=== PATIENT | female | born 1980 | race Caucasian/White ===

== ENCOUNTER 2017-03-19 06:56 | Outpatient (CLI) | payer OTHER ==
[~2017-03-19] VITALS: Ht 170.2 cm; Wt 86.6 kg
[~2017-03-19 06:56] MED LIST: ACYC-57 PO; CHOL100040; FIBER GUMMY PO; LABE1TAB28 PO; MTR600X PO; PRENTAB26 PO
[2017-03-19] MEDS ORDERED: LACTATED RINGER'S 1000ML 500 ML IV ONE (07:24)
[2017-03-19] MEDS ORDERED: LACTATED RINGER'S 1000ML 1,000 ML IV SCH (07:24)
[2017-03-19] MEDS ORDERED: ONDANSETRON INJ 2 MG/ML 2 ML VIAL IV PRN (07:30)
[2017-03-19] MEDS ORDERED: CEFTRIAXONE SOD INJ 1 GM in DEXTROSE 5% ADD-VANTAGE 50ML 50 ML IV SCH (08:00)
[2017-03-19 08:39] LABS: BLOOD UREA NITROGEN 10 mg/dl (7-18); CALCIUM 8.4 mg/dl (8.5-10.1); CARBON DIOXIDE 22 mmol/L (21-32); CREATININE 1.03 mg/dl (0.60-1.20); GLUCOSE 93 mg/dl (70-99); SODIUM 138 mmol/L (136-145)
[2017-03-19 09:08] VITALS: Ht 170.2 cm; Wt 86.6 kg
[2017-03-19] MEDS ORDERED: MoRPHine SULFATE 10 MG/ML CARP/VIAL IV ONE (09:30)
[2017-03-19 10:03] LABS: BASO % 0.1 %; BASO ABS # 0.02 K/uL (0-0.2); EOS % 0.1 %; EOS ABS # 0.02 K/uL (0-0.5); HEMATOCRIT 33.1 % (37-47); HEMOGLOBIN 11.8 g/dL (12.0-16.0); IG# 0.18 K/uL (0.00-0.02); LYMPH % 6.7 %; LYMPH ABS # 0.95 K/uL (1.2-3.4); MEAN CELL VOLUME 90.9 fL (80-100); MEAN CORPUSCULAR HEMOGLOBIN 32.4 pg (25-34); MEAN CORPUSCULAR HGB CONC 35.6 g/dl (32-36); MONO % 2.5 %; MONO ABS # 0.36 K/uL (0.11-0.59); NEUT % 89.3 %; NEUT ABS # 12.74 K/uL (1.4-6.5); PLATELET COUNT 189 K/uL (130-400); RED CELL DISTRIBUTION WIDTH CV 13.3 % (11.5-14.5); RED CELL DISTRIBUTION WIDTH SD 44.1 fL (36.4-46.3); WHITE BLOOD COUNT 14.27 K/uL (4.8-10.8)
--- NOTE | 2017-03-19 11:56 | DIAGNOSTIC IMAGING REPORT ---
(RENAL)RETROPERITON COMP CLINICAL HISTORY: 36 years-old Female presenting with flank pain, 29 weeks . TECHNIQUE: Real-time grayscale and limited color Doppler ultrasound imaging of the kidneys and bladder was performed. COMPARISON: None. FINDINGS: Right kidney: Normal echogenicity. Right kidney measures 11.4 cm. No hydronephrosis. No convincing evidence of calculus or mass. Normal perfusion. Left kidney: Normal echogenicity. Left kidney measures 11.1 cm. Mild pelviectasis. No convincing evidence of calculus or mass. Normal perfusion. Bladder: No bladder wall thickening. Bilateral ureteral jets not visualized. Other: Spleen top normal in size, measuring 13.8 cm in greatest sagittal dimension. IMPRESSION: 1. Mild left pelviectasis, likely mild hydronephrosis of . 2. Mild splenomegaly. Electronically signed by: Jamaal Ybarra M.D. 03/19/2017 11:55 AM Dictated Date/Time: 03/19/2017 8:34 AM
[2017-03-19] MEDS ORDERED: OXYCODONE/ACETAMINOPHEN 5-325 TAB PO PRN (12:00)
[2017-03-19] MEDS ORDERED: ACETAMINOPHEN 325 MG TAB PO PRN (12:00)
[2017-03-19] MEDS ORDERED: OXYC-57 PO (12:00)
--- NOTE | 2017-03-19 12:03 | Discharge Instructions ---
Discharge Instructions Date of Service Mar 19, 2017. Admission Reason for Admission: Back Pain Discharge Discharge Diagnosis / Problem: at 28.6 weeks, possible renal stone Discharge Goals Goal(s): Continuing OB care Activity Recommendations Activity Limitations: resume your previous activity . Instructions / Follow-Up Instructions / Follow-Up ACTIVITY RECOMMENDATIONS: See Labor Sheet. SPECIAL CARE INSTRUCTIONS: Call Doctor if: * Regular contractions every 5 minutes or greater. * Bleeding * Water breaks or is leaking * Decreased movement * Fever >100.4 degrees F * Pain not relieved by routine measures or pain medication ordered. FOLLOW UP VISIT: [facility]: within 1 week Current Hospital Diet Patient's current hospital diet: Regular OB Diet Discharge Diet Recommended Diet: Regular OB Diet Pending Studies Studies pending at discharge: no Medical Emergencies . Who to Call and When: Medical Emergencies: If at any time you feel your situation is an emergency, please call 911 immediately. . Non-Emergent Contact Non-Emergency issues call your: Primary Care Provider, Puppet Developer Call Non-Emergent contact if: you have a fever, your pain is not controlled . . "Provider Documentation" section prepared by Romulo Milligan. . VTE Core Measure Inpt VTE Proph given/why not?: Treatment not indicated
[2017-03-20] MEDS ORDERED: NICOTINE 14 MG/24 HR TDSY TD SCH (08:00)
== END 2017-03-19 13:10 | disposition home or self-care (01) ==
LOC: C.LD 06:56 → C.OPB 06:56
PROVIDERS: ATTEND Obstetrics & Gynecology
DX: O99.89 Other specified diseases and conditions complicating pregnancy, childbirth and the puerperium (principal); M54.9 Dorsalgia, unspecified; Z3A.28 28 weeks gestation of pregnancy

== ENCOUNTER 2017-04-29 12:34 | Outpatient (CLI) | payer OTHER ==
[~2017-04-29] VITALS: Ht 170.2 cm; Wt 88.2 kg
[~2017-04-29 12:34] MED LIST changes: -MTR600X PO; +OXYC-57 PO
[2017-04-29 13:02] VITALS: Ht 170.2 cm; Wt 88.2 kg
[2017-04-29 13:16] LABS: BASO % 0.1 %; BASO ABS # 0.01 K/uL (0-0.2); EOS % 0.4 %; EOS ABS # 0.04 K/uL (0-0.5); HEMATOCRIT 31.9 % (37-47); HEMOGLOBIN 11.1 g/dL (12.0-16.0); IG# 0.09 K/uL (0.00-0.02); LYMPH % 14.8 %; LYMPH ABS # 1.49 K/uL (1.2-3.4); MEAN CELL VOLUME 91.4 fL (80-100); MEAN CORPUSCULAR HEMOGLOBIN 31.8 pg (25-34); MEAN CORPUSCULAR HGB CONC 34.8 g/dl (32-36); MEAN PLATELET VOLUME 10.6 fL (7.4-10.4); MONO % 4.1 %; MONO ABS # 0.41 K/uL (0.11-0.59); NEUT % 79.7 %; NEUT ABS # 8.03 K/uL (1.4-6.5); PLATELET COUNT 178 K/uL (130-400); RED CELL DISTRIBUTION WIDTH CV 14.3 % (11.5-14.5); RED CELL DISTRIBUTION WIDTH SD 47.3 fL (36.4-46.3); WHITE BLOOD COUNT 10.07 K/uL (4.8-10.8)
[2017-04-29 13:37] LABS: ALBUMIN 2.7 gm/dl (3.4-5.0); CALCIUM 8.4 mg/dl (8.5-10.1); CREATININE 0.63 mg/dl (0.60-1.20); POTASSIUM 3.7 mmol/L (3.5-5.1)
[2017-04-29 13:39] LABS: TOTAL PROTEIN 6.6 gm/dl (6.4-8.2)
== END 2017-04-29 16:02 | disposition home or self-care (01) ==
LOC: C.OPB 12:34 → C.LD 12:36 → C.OPB 16:02
PROVIDERS: ATTEND Obstetrics & Gynecology
DX: O99.89 Other specified diseases and conditions complicating pregnancy, childbirth and the puerperium (principal); R03.0 Elevated blood-pressure reading, without diagnosis of hypertension; O36.8130 Decreased fetal movements, third trimester, not applicable or unspecified; Z3A.34 34 weeks gestation of pregnancy

== ENCOUNTER 2017-06-05 03:10 | Inpatient (IN) | payer OTHER ==
[~2017-06-05] VITALS: Ht 170.2 cm; Wt 93.0 kg
[2017-06-05] MEDS ORDERED: LACTATED RINGER'S 1000ML 1,000 ML IV PRN (08:23)
[2017-06-05 08:45] LABS: HEMATOCRIT 34.1 % (37-47); HEMOGLOBIN 11.8 g/dL (12.0-16.0); MEAN CELL VOLUME 91.9 fL (80-100); MEAN CORPUSCULAR HEMOGLOBIN 31.8 pg (25-34); MEAN CORPUSCULAR HGB CONC 34.6 g/dl (32-36); MEAN PLATELET VOLUME 10.4 fL (7.4-10.4); PLATELET COUNT 166 K/uL (130-400); RED CELL DISTRIBUTION WIDTH CV 14.6 % (11.5-14.5); WHITE BLOOD COUNT 9.85 K/uL (4.8-10.8)
[2017-06-05] MEDS ORDERED: LACTATED RINGER'S 1000ML 500 ML IV PRN ×2 (09:01→12:46)
--- NOTE | 2017-06-05 09:04 | Progress Note ---
Progress Note Date of Service Jun 05, 2017. Progress Note Admit Note 36 F P1001 at 40 weeks admitted for induction of labor. GBS is negative. Cervix 2-3/70/-2/vertex/soft/midline/intact. EFW 7.5-8 lbs. FHT Cat 1. Will start oxytocin to induce labor.
[2017-06-05 09:14] VITALS: Ht 170.2 cm; Wt 93.0 kg
[2017-06-05] MEDS ORDERED: VALA500T60 PO (09:14)
[2017-06-05] MEDS ORDERED: OXYTOCIN 30 UNITS/500ML NSS IV PRN ×2 (09:15→18:15)
[2017-06-05] MEDS: LACTATED RINGER'S 1000ML 1,000 ML IV SCH ×3 (09:43→18:34)
[2017-06-05] MEDS ORDERED: BUPIVACAINE 0.25% 30 ML VIAL ONE (12:04)
[2017-06-05] MEDS ORDERED: EpHEDrine SULFATE INJ 50 MG/ML AMP ONE (12:05)
[2017-06-05] MEDS ORDERED: FENTANYL 2MCG/ML ROPIV 1.25MG/ML 100ML BAG EPI ONE (12:06)
[2017-06-05] MEDS ORDERED: FENTANYL CITRATE INJ 50 MCG/1 ML 2 ML VIAL ONE (12:06)
[2017-06-05] MEDS ORDERED: NALOXONE HCL INJ 1 MG in SODIUM CHLORIDE 0.9% 1000ML 1,000 ML IV PRN (12:46)
[2017-06-05] MEDS ORDERED: NALOXONE HCL 0.4 MG/1 ML VIAL/CARP IV PRN (13:00)
[2017-06-05] MEDS ORDERED: DiphenhydrAMINE HCL 50 MG/ML VIAL IV PRN (13:00)
[2017-06-05] MEDS ORDERED: NALBUPHINE HCL INJ 10 MG/ML AMP IV PRN (13:00)
[2017-06-05] MEDS ORDERED: ONDANSETRON INJ 2 MG/ML 2 ML VIAL IV PRN (13:00)
[2017-06-05] MEDS ORDERED: EpHEDrine SULFATE INJ 50 MG/ML AMP IV PRN (13:00)
[2017-06-05] MEDS ORDERED: FENTANYL 2MCG/ML ROPIV 1.25MG/ML 100ML BAG EPI PRN (13:00)
[2017-06-05] MEDS ORDERED: LACTATED RINGER'S 1000ML 1,000 ML IV SCH (18:09)
[2017-06-05] MEDS ORDERED: BENZOCAINE 20% AER SPR 82.5 GM CAN EXT PRN (18:15)
[2017-06-05] MEDS ORDERED: OXYCODONE/ACETAMINOPHEN 5-325 TAB PO PRN (18:15)
[2017-06-05] MEDS ORDERED: HYDROCORTISONE ACETATE 25 MG SUPP PR PRN (18:15)
[2017-06-05] MEDS ORDERED: LANOLIN OINT EXT PRN (18:15)
[2017-06-05] MEDS ORDERED: ACETAMINOPHEN 325 MG TAB PO PRN (18:15)
--- NOTE | 2017-06-05 18:16 | Vaginal Delivery Summary ---
Vaginal Delivery Summary Delivery Note live female over intact perineum JUAN with nuchal cord x1 reduced at delivery. Delayed cord clamping followed by spontaneous delivery of intact placenta. Apgars 8/9 weight pending. Second degree tear repaired with 1 % plain lidocaine. EBL 250 ml. Final sponge, needle and instrument count are correct. Mom and baby stable.
--- NOTE | 2017-06-05 19:19 | Anesthesia Procedure Note ---
Anesthesia Epidural Removal Nt Date & Time Jun 05, 2017 at 19:19 Vital Signs Pain Intensity: 0.0 Notes Mental Status: alert / awake / arousable, participated in evaluation Nausea / Vomiting: adequately controlled Pain: adequately controlled Airway Patency, RR, SpO2: stable & adequate BP & HR: stable & adequate Hydration State: stable & adequate Neuraxial Anesthesia: was administered Anesthetic Complications: no major complications apparent, pt satisfied with anesthetic care Epidural: removed without complications, with tip intact
[2017-06-05 21:05] VITALS: BP 132/87; PULSE 81; TEMP 37.3
[2017-06-05] MEDS: IBUPROFEN 600 MG TAB PO PRN (23:03)
[2017-06-06] VITALS (8 sets, daily range): BP systolic 131–152; BP diastolic 78–104; PULSE 69–102; TEMP 36.6–37.5; O2SAT 97–98
[2017-06-06] MEDS: IBUPROFEN 600 MG TAB PO PRN ×4 (05:30→17:28)
[2017-06-06 07:33] LABS: HEMATOCRIT 28.5 % (37-47); HEMOGLOBIN 9.8 g/dL (12.0-16.0)
[2017-06-06] MEDS: PRENATAL VITAMIN TAB PO SCH (08:10)
[2017-06-06] MEDS: FERROUS SULFATE 325 MG TAB PO SCH (08:10)
[2017-06-06] MEDS: DOCUSATE SODIUM 100 MG CAP PO SCH (08:10)
[2017-06-06] MEDS ORDERED: DIPHTHERIA/TETANUS/PERTUSSIS 0.5 ML SYR/VIAL IM. ONE (09:00)
[2017-06-06] MEDS ORDERED: MEASLES, MUMPS & RUBELLA VIRUS VIAL SQ. ONE (09:00)
--- NOTE | 2017-06-06 09:07 | OB/GYN Progress Note ---
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 Patient is seen and examined. She feels well, no complaints. Ambulating without dizziness Voiding without difficulty Tolerating regular diet with out N&V Bleeding is minimal No fever/ chills/ CP/ SOB/ N&V/ Leg pain Breast feeding without problems Date Time Temp Pulse Resp B/P (MAP) Pulse Ox O2 Delivery O2 Flow Rate FiO2 06/06/17 04:35 37.1 69 18 145/93 (110) Room Air 06/06/17 00:35 136/90 (105) 06/06/17 00:05 Room Air 06/06/17 00:05 37.5 75 18 152/104 (120) Room Air 06/05/17 21:05 Room Air 06/05/17 21:05 37.3 81 18 132/87 (102) Room Air BP: 152/104 PE: General: Alert, orientedx3, NAD Abd: soft, NT, fundus firm, below Umbilicus Perineum intact, Lochia rubra minimal Ext; NT, no edema AP: 36 yo s/p , ppd# 1 VSS Afebrile doing well BP elevated, none in severe range, asymptomatic h/o preeclampsia with 1st , not with this Plan blood work and start Labetalol 50 mg bid She agrees Continue to monitor closely All questions were answered D/C home tomorrow
[2017-06-06 09:19] LABS: BASO % 0.2 %; BASO ABS # 0.03 K/uL (0-0.2); EOS % 0.3 %; EOS ABS # 0.04 K/uL (0-0.5); HEMATOCRIT 30.8 % (37-47); HEMOGLOBIN 10.7 g/dL (12.0-16.0); IG# 0.08 K/uL (0.00-0.02); LYMPH ABS # 1.46 K/uL (1.2-3.4); MEAN CELL VOLUME 91.9 fL (80-100); MEAN CORPUSCULAR HEMOGLOBIN 31.9 pg (25-34); MEAN CORPUSCULAR HGB CONC 34.7 g/dl (32-36); MEAN PLATELET VOLUME 10.6 fL (7.4-10.4); MONO % 3.9 %; MONO ABS # 0.57 K/uL (0.11-0.59); NEUT % 85.1 %; NEUT ABS # 12.47 K/uL (1.4-6.5); PLATELET COUNT 190 K/uL (130-400); RED CELL DISTRIBUTION WIDTH CV 14.8 % (11.5-14.5); RED CELL DISTRIBUTION WIDTH SD 49.8 fL (36.4-46.3); WHITE BLOOD COUNT 14.65 K/uL (4.8-10.8)
[2017-06-06] MEDS: LABETALOL HCL 100 MG TAB PO SCH ×2 (09:30→19:37)
[2017-06-06 10:05] LABS: ALBUMIN 2.4 gm/dl (3.4-5.0); CALCIUM 8.6 mg/dl (8.5-10.1); CREATININE 0.94 mg/dl (0.60-1.20); POTASSIUM 3.9 mmol/L (3.5-5.1)
[2017-06-06 10:08] LABS: TOTAL PROTEIN 6.2 gm/dl (6.4-8.2)
[2017-06-06] MEDS ORDERED: BISACODYL 5 MG TABEC PO SCH (20:00)
[2017-06-07 00:10] VITALS: BP 124/83; PULSE 83; TEMP 37.2
[2017-06-07] MEDS: IBUPROFEN 600 MG TAB PO PRN (06:46)
[2017-06-07] MEDS ORDERED: BISACODYL 10 MG SUPP PR PRN (07:00)
[2017-06-07] MEDS ORDERED: LBT100 PO (07:16)
--- NOTE | 2017-06-07 07:17 | Discharge Instructions ---
Discharge Instructions Date of Service Jun 07, 2017. Admission Reason for Admission: Induction Discharge Discharge Diagnosis / Problem: Vaginal Delivery Discharge Goals Goal(s): Routine recovery after delivery Medications Continue Dispensed Medications: supercream, dermaplast, tucks, lansinoh Activity Recommendations Activity Limitations: per Instructions/Follow-up section . Instructions / Follow-Up Instructions / Follow-Up ACTIVITY RECOMMENDATIONS: * Gradual return to full activity over the next 2-3 weeks. * No lifting - nothing heavier than baby over the next 2-3 weeks. * Do not engage in vigorous exercise, sexual activity or sports until cleared by your physician. * Do not drive or operate any motorized equipment until cleared by your physician. * You may shower/bathe daily. BREAST CARE: If you are not breast feeding: * Wear a supportive bra 24 hours a day for one to two weeks. * Avoid stimulating your breasts and nipples as much as possible during the first few weeks after delivery. * When taking a shower, have the warm water hit your back, not breasts. * When your breasts feel full, apply ice packs. Usually three to four times a day helps ease the discomfort. * Take a mild pain medication (Tylenol/Motrin) when you are uncomfortable. If breast feeding: * Use breast milk to lubricate nipples. Lansinoh cream may be used for sore nipples. You do not need to remove cream prior to breast feeding. If using a different brand of cream, check the label for directions regarding removal of cream prior to nursing. * Wear a supportive bra. * If having problems with breasts or breast feeding, call a design consultant or your health care provider. EPISIOTOMY CARE: After delivery, if you have an episiotomy (stitches), the following steps will ease discomfort and aid healing. * For the first 24 hours after delivery, place ice packs next to your episiotomy to help reduce swelling. * After the first 24 hour-period, sitz baths, either portable or in the tub, are suggested. A shower with a shower arm sprayed over the episiotomy may be comforting. * Stacia care should be done after each voiding and bowel movement. Squirt warm water from a plastic bottle over the perineum (region of the body between the anus and urinary opening) and pat dry. * Use Dermoplast to ease discomfort. Shake container. Allen directly over the episiotomy. * Place a Tucks on a clean sanitary pad next to your episiotomy. OVER THE COUNTER MEDICATION: * For discomfort or pain, you may use Acetaminophen (Tylenol), Ibuprofen (Advil ), or Naproxen (Aleve) following the package directions. * For constipation you may use Colace following the package directions. SPECIAL CARE INSTRUCTIONS: When you are discharged from the hospital, it is important for you to follow the instructions listed below: * During the first week at home, you should be able to care for yourself and your baby. In addition, the usual light household activities are encouraged. * Limit your activities to the way you feel. Do not try to clean the house or move furniture. Be sensible. * If you actively engage in sports and have done so up until the time of your delivery, you may resume these activities as soon as you feel able. This may take up to one month or even longer. Use good judgment. * Continue to take your vitamins for at least six weeks after the of your baby. * Your diet need not be limited unless you were on a special diet before your delivery. Breast-feeding mothers need around 2500 calories per day and at least 64-80 ounces of fluid per day (8 to 10 glasses). * You should eat foods from the four major food groups. Crash diets or fad diets are to be avoided. Eating lean meats, fresh fruits and vegetables, low-fat dairy products, high fiber foods and a regular exercise program, will help you get back to your pre- weight without putting your health at risk. * Constipation is sometimes a problem after delivery. Take a mild laxative as needed. If breast feeding, Milk of Magnesia is acceptable to use. You may use a suppository or Fleets enema if no episiotomy. * A daily shower or tub bath is suggested. Be sure to thoroughly and gently dry the perineum. * A bloody vaginal discharge will usually continue until around four weeks post . A small amount of bleeding may continue for as long as six weeks. Vaginal discharge changes from the bright red bleeding after delivery to pink then brownish and finally yellowish-pink before becoming white and disappearing. * Bleeding may increase with activity. Your first period may come in 4-8 weeks. If you are breast feeding, your period may be delayed even longer. * [place] (sex) can begin whenever both you and your partner feel comfortable and do not have any form of genital infection. It is recommended that you wait until after your return appointment and discuss with your physician. If you have questions, please talk to your health care practitioner. A condom should be used to prevent infection and . * Foreplay, gentle intercourse and lubrication is very important the first several times to prevent pain. A water-based lubricant such as K-Y jelly or Astroglide may be used. * Tampons may be used six weeks after delivery. * Douching should be avoided for 6 weeks after delivery. * If you have RH negative blood and your baby is RH positive, you will receive RHOGAM by injection prior to discharge. The nurse will give you a card to keep with you that has the date and place that you received RHOGAM after delivery. * During your care, you had a Rubella screen done to check for the presence of rubella antibodies in your blood. If your test was negative, you will receive a Rubella vaccine prior to discharge. This vaccine may cause a fever, soreness at the injection site and flu-like symptoms. If these symptoms persist, notify your health care practitioner. is not advised for three months after a Rubella vaccine. There is a higher chance of having a baby with defects if conceived within three months of getting the vaccine. * If you were discharged 24 hours from delivery or before 48 hours: Visiting nurses will come to your home 48 hours after discharge to assess you and your baby. The visiting nurse will meet with you while you are in the hospital to arrange a time and get directions to your home. * Verbalizes understanding of car seat law as reviewed with patient nursing. * Car Seat hand-out given and reviewed with patient by nursing. * Shaken baby information reviewed with patient by nursing. Call you doctor if: * Heavy bleeding (saturating several pads an hour) or passing clots the size of your fist. * A fever >101 degrees F (38.3 degrees C) on two occasions four hours apart and/or chills. * Unusual pain in the pelvic or vaginal areas. * "Baby Blues" lasting longer than two weeks. If you have any questions or concerns, call your health care practitioner at . FOLLOW-UP VISIT: * Please call the office at to schedule a 1 week examination for a blood pressure. It is important you keep this appointment. * It is important for you to make arrangements for either yearly or twice yearly check-ups thereafter. Current Hospital Diet Patient's current hospital diet: Regular OB Diet Discharge Diet Recommended Diet: Regular OB Diet Pending Studies Studies pending at discharge: no Medical Emergencies . Who to Call and When: Medical Emergencies: If at any time you feel your situation is an emergency, please call 911 immediately. . Non-Emergent Contact Non-Emergency issues call your: Primary Care Provider, Geriatric Physical Therapist . . "Provider Documentation" section prepared by Romulo Milligan. .
--- NOTE | 2017-06-07 07:23 | OB/GYN Progress Note ---
HEADSTART TEACHER Progress Note Date of Service Jun 07, 2017. Subjective conversation w/ patient, physical exam Ambulation: ambulating normally Voiding: no voiding problems Passing Gas: Yes Diet Tolerance: Regular Diet Lochia: Small Pain: 2/10 Notes: Doing well, no concerns. Pain well controlled. Tolerating regular diet. Ambulating without difficulty. Lochia decreasing. Denies ZIEGLER, changes in vision. Would like to go home today. Objective Vital Signs Date Time Temp Pulse Resp B/P (MAP) Pulse Ox O2 Delivery O2 Flow Rate FiO2 06/07/17 00:10 37.2 83 16 124/83 (97) Room Air 06/07/17 00:10 Room Air 06/06/17 19:35 102 137/78 (97) 06/06/17 15:30 37.3 89 18 131/88 (102) 97 Room Air 06/06/17 15:30 97 Room Air 06/06/17 12:00 37.5 93 20 134/85 (101) 97 Room Air 06/06/17 09:35 137/87 (104) 06/06/17 08:20 36.6 87 18 148/103 (118) 98 Room Air 06/06/17 08:20 Room Air Physical Exam General Appearance: WELL-APPEARING Respiratory/Chest: chest non-tender, lungs clear Cardiovascular: regular rate, rhythm Abdomen: normal bowel sounds, soft Extremities: normal range of motion, non-tender, no calf tenderness Laboratory Results Last 24 Hours Test 06/06/17 09:03 White Blood Count 14.65 K/uL Red Blood Count 3.35 M/uL Hemoglobin 10.7 g/dL Hematocrit 30.8 % Mean Corpuscular Volume 91.9 fL Mean Corpuscular Hemoglobin 31.9 pg Mean Corpuscular Hemoglobin Concent 34.7 g/dl Platelet Count 190 K/uL Mean Platelet Volume 10.6 fL Neutrophils (%) (Auto) 85.1 % Lymphocytes (%) (Auto) 10.0 % Monocytes (%) (Auto) 3.9 % Eosinophils (%) (Auto) 0.3 % Basophils (%) (Auto) 0.2 % Neutrophils # (Auto) 12.47 K/uL Lymphocytes # (Auto) 1.46 K/uL Monocytes # (Auto) 0.57 K/uL Eosinophils # (Auto) 0.04 K/uL Basophils # (Auto) 0.03 K/uL RDW Standard Deviation 49.8 fL RDW Coefficient of Variation 14.8 % Immature Granulocyte % (Auto) 0.5 % Immature Granulocyte # (Auto) 0.08 K/uL Sodium Level 136 mmol/L Potassium Level 3.9 mmol/L Chloride Level 107 mmol/L Carbon Dioxide Level 20 mmol/L Anion Gap 9.0 mmol/L Blood Urea Nitrogen 7 mg/dl Creatinine 0.94 mg/dl Est Creatinine Clear Calc Drug Dose 98.7 ml/min Estimated GFR () 91.7 Estimated GFR (Non- 79.2 BUN/Creatinine Ratio 7.1 Random Glucose 121 mg/dl Calcium Level 8.6 mg/dl Total Bilirubin 0.4 mg/dl Aspartate Amino Transf (AST/SGOT) 19 U/L Alanine Aminotransferase (ALT/SGPT) 15 U/L Alkaline Phosphatase 84 U/L Total Protein 6.2 gm/dl Albumin 2.4 gm/dl Globulin 3.8 gm/dl Albumin/Globulin Ratio 0.6 Assessment and Plan Post- Day Number: 2 Continue Routine Care: -D/C home today -Continue labetalol 50 mg BID and will follow up in 1 week for BP check.
[2017-06-07] MEDS: PRENATAL VITAMIN TAB PO SCH (07:51)
[2017-06-07] MEDS: FERROUS SULFATE 325 MG TAB PO SCH (07:51)
[2017-06-07] MEDS: LABETALOL HCL 100 MG TAB PO SCH (07:52)
[2017-06-07] MEDS: DOCUSATE SODIUM 100 MG CAP PO SCH (07:54)
[2017-06-07 08:16] VITALS: BP 153/102; PULSE 74; TEMP 36.6; O2SAT 99
[2017-06-07 08:18] VITALS: BP 138/98
[2017-06-07 10:25] VITALS: BP_DIAS 98; PULSE 74; TEMP 36.6
== END 2017-06-07 10:40 | disposition home or self-care (01) | DRG 775 ==
LOC: C.LD 07:39 → C.OBG 20:41
PROVIDERS: ADMIT Obstetrics & Gynecology; ATTEND Obstetrics & Gynecology
PROC: 10E0XZZ Delivery of Products of Conception, External Approach (ICD-10-PCS; principal; 2017-06-05)
PROC: 0KQM0ZZ Repair Perineum Muscle, Open Approach (ICD-10-PCS; principal; 2017-06-05)
PROC: 3E033VJ Introduction of Other Hormone into Peripheral Vein, Percutaneous Approach (ICD-10-PCS; 2017-06-05)
DX: O70.1 Second degree perineal laceration during delivery (principal); O69.81X0 Labor and delivery complicated by cord around neck, without compression, not applicable or unspecified; Z37.0 Single live birth; Z3A.40 40 weeks gestation of pregnancy